=== PATIENT | female | born 1995 | race Caucasian/White ===

== ENCOUNTER 2019-10-13 06:03 | Inpatient (IN) | payer OTHER ==
[~2019-10-13] VITALS: Ht 165.1 cm; Wt 67.0 kg
[~2019-10-13 06:03] MED LIST: PRENATAL TABLE1 EAC5 PO
--- NOTE | 2019-10-13 07:29 | NUR ---
10/13/19 PT ARRIVED WITH HER MOM C/O NEED TO PUSH, 10CM ON FIRST EXAM WITH BBOW, FHT 60-100, CALL TO [facility] TO COME [facility]STER FOR DELIVERY, STERILE STEUP, WARMER AND 2 EXTRA NURSES CALLED TO ASSIST. fLUID MILKY IN COLOR YET NO ODOR NOTED
--- NOTE | 2019-10-13 07:33 | NUR ---
10/13/19 0555 PT ARRIVED WITH HER MOM WITH C/O OF NEEDING TO HAVE BM, FIRST EXAM 10CM WITH BBOW, CALLED Jennifer MONGE CNM TO COME FOR DELIVERY, STERILE SET UP AND WARMED INTO ROOM, PT ON O2 FOR FHT 60-100. FLUID UPON RUPTURE WAS MILKY COLORED YET HAD NO ODOR. PT NEEDED MUCH ENCOURAGEMNT TO PUSH, AND DELIVERED BY RN AT 0604, Jennifer MONGE ARRIVED AT 0610 AND SHE DELIVERED THE PLACENTA
[2019-10-13 09:08] LABS: U Amphetamine Screen DETECTED; U Barbituate Screen Not Detected; U Benzodiazapine Screen Not Detected; U Buprenorphine Screen Not Detected; U Cannabinoids Screen DETECTED; U Cocaine Screen Not Detected; U Methadone Screen Not Detected; U Methamphetamine Screen DETECTED; U Opiates Screen Not Detected; U Oxycodone Screen Not Detected; U Phencyclidine Screen Not Detected; U Propoxyphene Screen Not Detected
--- NOTE | 2019-10-13 10:40 | NUR ---
P[/C TO LUPIS SUPERVISOR SHRIMP POND AND [facility], THEY ARE TO ARRANGE HOTEL ROOM FOR TOI AND HER SUPPORT PERSON (JOSE MIGUEL GONZALEZ) AND MEAL VOUCHERS TO BE LEFT IN BABIES ROOM.
--- NOTE | 2019-10-13 12:30 | NUR ---
PT ESCORTED OUTSIDE IN A WHEELCHAIR, ESCORTED BY HER MOTHER
--- NOTE | 2019-10-13 13:26 | NUR ---
PT SOUND ASLEEP WHEN NURSE WALKED IN THE OIL DIPPER STATED PT WAS NEEDING PAIN MEDICATION FOR CRAMPING DURING HER LAB DRAW. PT AROUSED WHEN SPOKEN TO BUT HAD DIFFICULTY ANSWERING THE QUESTION OF WHAT HER PAIN LEVEL FOR CRAMPING WAS BETWEEN 0-10 FIRST PATIENT STATES 9 THAN SAID SHE DIDNT UNDERSTAND SHE EKPT FALLING ASLEEP, PT MOTHER IN ROOM ALSO TRYING TO KEEP PT AWAKE LONG ENOUGH TO ANSWER QUESTION. PT WAS MEDICATED WITH IBUPROFEN 800MG PO AND THAN WENT BACK TO SLEEP
[2019-10-13 13:29] LABS: BASOPHILS ABSOLUTE AUTO 0.03 K/mm3 (0.00-0.23); BASOPHILS PERCENT AUTO 0 % (0-2); EOSINOPHILS ABSOLUTE AUTO 0.01 K/mm3 (0.00-0.68); EOSINOPHILS PERCENT AUTO 0 % (0-6); Hematocrit 41.6 % (33.0-51.0); Hemoglobin 13.4 g/dL (11.5-16.0); IMMATURE GRAN PERCENT AUTO 1 % (0-1); LYMPHOCYTES ABSOLUTE AUTO 1.92 K/mm3 (0.84-5.20); LYMPHOCYTES PERCENT AUTO 10 % (21-46); MONOCYTES ABSOLUTE AUTO 0.76 K/mm3 (0.16-1.47); MONOCYTES PERCENT AUTO 4 % (4-13); Mean Corpuscular HGB 26.8 pg (26.0-34.0); Mean Corpuscular HGB Conc 32.2 g/dL (31.5-36.5); Mean Corpuscular Volume 83 fL (80-100); NEUTROPHILS ABSOLUTE AUTO 16.14 K/mm3 (1.96-9.15); NEUTROPHILS PERCENT AUTO 85 % (41-73); Platelet Count 222 K/mm3 (150-400); RDW Coefficient Variation 14.6 % (11.7-14.2); White Blood Cell Count 18.96 K/mm3 (4.00-11.30)
[2019-10-13 13:38] LABS: Mean Platelet Volume 13.5 fL (9.1-12.4)
--- NOTE | 2019-10-13 14:41 | NUR ---
P/C FROM DR ISLAS AT [facility], UPDATE GIVEN TO PAM OVER THE PHONE, PT STILL UNABLE TO STAY AWAKE LONG ENOUGH TO COMPREHEND CONVERSATION
--- NOTE | 2019-10-13 14:47 | NUR ---
P/C TO Jennifer MONGE CNM, PT MOTHER FEELS IT WOULD BE BEST TO HAVE TOI STAY OVER NIGHT AT [facility] THEY WILL NOT BE ABLE TO HAVE A LOT OF ACCESS TO BABY AT THIS TIME DUE TO HIS CONDITION, PT MOTHER FEELS IT WOULD BE BEST FOR [facility] TO STAY HER SHE HAS BEEN SO SLEEPY AND UNABLE TO STAY AWAKE FOR MOST CONVERSATIONS AND SEEMS CONFUSED AT TIMES, LINDA AGREED AND WILL BE D/C DISCHARGE ORDER FOR TODAY
--- NOTE | 2019-10-13 15:33 | NUR ---
REPT TO Josh PONCE RN
--- NOTE | 2019-10-13 18:02 | NUR ---
pt was excited to get her dinner at 1645, but just checked on her and she is sound asleep and hasnt touched her dinner, when you ask her how baby was doing at 1645 shrugs and says has infection, when you ask about baby and is still intubated, she reports she doesnt know.
[2019-10-14 05:43] LABS: Hematocrit 40.2 % (33.0-51.0); Hemoglobin 12.8 g/dL (11.5-16.0); Mean Corpuscular HGB 26.5 pg (26.0-34.0); Mean Corpuscular HGB Conc 31.8 g/dL (31.5-36.5); Mean Corpuscular Volume 83 fL (80-100); Platelet Count 190 K/mm3 (150-400); RDW Coefficient Variation 14.7 % (11.7-14.2); RDW Standard Deviation 44.5 fL (35.1-46.3); Red Blood Cell Count 4.83 M/mm3 (3.80-5.20); White Blood Cell Count 14.96 K/mm3 (4.00-11.30)
[2019-10-14 05:44] LABS: Mean Platelet Volume 13.6 fL (9.1-12.4)
[2019-10-14] MEDS ORDERED: IBUP800 PO (09:54)
--- NOTE | 2019-10-14 09:55 | NUR ---
CPS WORKER RAFFI HERE TO SEE PT, WILL DC HOME AFTER CPS WORKER IS DONE TALKING WITH PT
--- NOTE | 2019-10-14 10:24 | NUR ---
CPS CONTINUES AT BEDSIDE WITH PATIENT MOM AT BEDSIDE WITH HER
--- NOTE | 2019-10-14 11:11 | NUR ---
CPS WAS DONE TALKING WITH PT, DID DC INSTRUCTIONS, OFFERED A PPFU, THEY WILL BE IN [place], UNSURE OF BABY CONDITION SO THEY WILL CALL IF THEY WANT A MOM PPFU APPOINMENT, GAVE FAMILY PLACE NUMBER, TO CALL. ENCOAURGED TO MAKE 2 WEEK APPOINEMENT WITH [facility]UD[facility]. GAVE SOME PADS HAIR TIES, FRESH ICE WATER AND PT LEFT WITH HER MOM TO GO TO [facility]
== END 2019-10-14 11:05 | disposition home or self-care (01) | DRG 806 ==
LOC: BC 06:03
PROVIDERS: ADMIT Advanced Practice Midwife
PROC: 10E0XZZ Delivery of Products of Conception, External Approach (ICD-10-PCS; principal; 2019-10-13)
PROC: 10907ZC Drainage of Amniotic Fluid, Therapeutic from Products of Conception, Via Natural or Artificial Opening (ICD-10-PCS; 2019-10-13)
DX: O62.3 Precipitate labor (principal); O99.324 Drug use complicating childbirth; Z37.0 Single live birth; Z3A.39 39 weeks gestation of pregnancy; F19.10 Other psychoactive substance abuse, uncomplicated; O76 Abnormality in fetal heart rate and rhythm complicating labor and delivery
CPT/HCPCS: 36415; 59025; 76819; 81003; 85025; 85027; 96360; 96361; G0378; G0480; J2590; J7120; U0002